=== PATIENT | male | born 2005 | race Two or more races ===

== ENCOUNTER 2024-07-25 22:25 | Emergency (ER) | payer MEDICAID, SELFPAY ==
[2024-07-25 22:27] VITALS: BMI 37.5
--- NOTE | 2024-07-25 22:28 | EKG_ITS ---
[facility] Test Date: 2024-07-25 Pat Name: SHAMAR ROYAL Department: Room: - Gender: Male Pharmacists: : 2005 Requested By: Leno Delaney Order Number: [id number] Reading MD: Leno Delaney Measurements Intervals [place] Rate: 90 P: 20 MN: 136 QRS: -2 QRSD: 110 T: 32 QT: 326 QTc: 400 Interpretive Statements SINUS RHYTHM WITH SINUS ARRHYTHMIA INCOMPLETE RIGHT BUNDLE BRANCH BLOCK [90+ ms QRS DURATION, TERMINAL R IN V1/V2, 40+ ms S IN I/aVL/V4/V5/V6] No previous ECG available for comparison /store/S0/[id number].pdf
[2024-07-25 22:37] VITALS: BP 137/90; PULSE 101; RESP 20; TEMP 36.7; O2SAT 100
--- NOTE | 2024-07-25 22:41 | XR_ITS ---
Examination: PA chest single view Technique: Upright PA chest single view Exam date and time: August 04, 2024 1050 hrs. Indications: Onset chest pain today. Findings: Normal heart size Lungs are clear. The osseous structures are intact Impression: No active disease
--- NOTE | 2024-07-25 22:46 | EDNOTE_ITS ---
ED General RME/HPI General Chief complaint: Chest Pain Stated complaint: CHEST PAIN, DIZZINESS, NAUSEA Time Seen by Provider: 07/25/24 22:37 Arrival date/time: 07/25/24 22:25 RME / HPI RME / HPI narrative: Patient is 18 years old male with past medical history of asthma, depression, self mutilation, suicide attempt presented to the ED complaining of chest pain. He reports pain started approximately 1 week ago and was worsening over the time. He denies any aggravating or elevating factors. He reports pain mostly located over his left chest and left upper quadrant of his abdomen. He has never had this kind of chest pain before. He reports smoking vape, denies smoking tobacco, using illicit drugs or drink alcohol. He denies any fever, chills, shortness of breath. He reports having diarrhea 2 to 3 days ago after he contracted something from his mom who also had diarrhea. Related Data Home Medications ?Medication ?Instructions ?Recorded ?Confirmed fluoxetine 20 mg capsule 20 mg PO QAM 07/16/21 hydroxyzine pamoate 25 mg capsule 50 mg PO HS 07/16/21 08/13/21 quetiapine 100 mg tablet (Seroquel) 150 mg PO HS 08/1308/13/21 Previous Rx's ?Medication ?Instructions ?Recorded ibuprofen 600 mg tablet 600 mg PO TID PRN fever or p ain 08/20/22 #30 tabs albuterol sulfate 90 mcg/actuation 2 inh inhalation QI D PRN shortness 03/19/23 aerosol inhaler (ProAir HFA) of breath or wheezing #8. 5 grams Allergies Allergy/AdvReac Type Severity Reaction Status Date / Time No Known Allergies Allergy Verified 07/25/24 22:26 Review of Systems Review of Systems Systems Reviewed: All systems reviewed, normal except as documented ED Exam Narrative Physical exam: Gen: Well-developed and well-nourished male. HEENT: NCAT, PERRLA, EOMI, MMM, anicteric conjunctivae. CVS: normal S1 and S2. RRR. No M/R/G. Resp: CTA B/L. No rhonchi, rales, crackles or wheezing. Abd: soft, obese, tender in LUQ, non-distended. BS+ in all 4 quadrants. MSK: Good ROM in BUE & BLE. No edema or rash. Neuro: CN II-XII grossly intact. Strength 5/5 in BUE & BLE. Alert and oriented x3. Psych: Appears depressed, does not maintain eye contact. Course Quality Measures none Orders Category Date Time Status EKG (ED ONLY) *Do not use* NOW Care 07/25/24 22:28 Completed CXRP [XR chest 1V portable] Stat Exams 07/25/24 22:41 Completed EKG (ED Only) Stat Exams 07/25/24 22:28 Draft Amylase Stat Lab 07/25/24 23:11 Completed CBC Stat Lab 07/25/24 23:11 Completed CMP [Comprehensive Metabolic Panel] Stat Lab 07/25/24 23:11 Completed Lipase Stat Lab 07/25/24 23:11 Completed Triglycerides Stat Lab 07/25/24 23:11 Completed Troponin I Stat Lab 07/25/24 23:11 Completed Vital Signs Vital signs: Vital Signs Temperature 98.0 F 07/25/24 22:37 Pulse Rate 101 H 07/25/24 22:37 Respiratory Rate 20 07/25/24 22:37 Blood Pressure 137/90 H 07/25/24 22:37 Pulse Oximetry (%) 100 07/25/24 22:37 Oxygen Delivery Method Room Air 07/25/24 22:37 Procedures -ED EKG Interpretation Sinus rhythm: Date of EK07/25/24 Time of EK:44 Rate: 90 Interpretation: Reviewed by me EKG Impression: Normal sinus rhythm [facility] Patient data External records reviewed:: [facility] previous records Clinical information provided by:: patient Social determinants that could affect healthcare access:: none Patient has the following chronic illnesses:: Asthma How is presenting disease/condition affected by chronic disease/condition?: u neffected by Evaluation data The following diagnostics were reviewed and interpreted by me:: lab results, radiology exam(s) and EKG tracing(s) Lab and/or radiology exams considered but not ordered:: CT chest Interpretation Summary: WNL Medications Medications considered but not ordered:: Aspirin, statin Medication administrations:: none Consultations Consultation(s) initiated? (list below): No Diagnosis Differential Diagnosis ED Complaint MDM: ACS, pneumonia, pancreatitis, functional pain Most likely diagnosis given after review of the tests above:: Functional pain Admission Indicated Admission indicated?: not indicated Explain why admission is indicated or not indicated:: Patient has functional pain, work up for pulmonary, cardiac or GI problems were negative. Admission Request Was there a request for admission?: No Disposition Plan Disposition Plan: Discharge Discharge Attestation Discharge Attestation: The patient and all family members were given an opportunity to ask questions and understood the discharge instructions. Discharge instructions specifically effects, indications for sooner follow up or return to the emergency department, and the expected course of current diagnosis. Patient condition: Stable Medical Decision Making Differential Diagnosis Differential Diagnosis: ACS, pneumonia, pancreatitis, functional pain Lab Data 07/25/24 23:11 07/25/24 23:11 Labs: Lab Results 07/25/24 Range/Units 23:11 WBC 10.4 (4.5-11.0) Thou/mm3 RBC 5.29 (4.50-5.90) Miln/mm3 Hgb 15.5 (13.5-16.0) g/dL Hct 45.3 (41.0-53.0) % MCV 86 (80-100) fL MCH 29.3 (25.0-35.0) pg MCHC 34.2 (31.0-37.0) g/dl RDW Std Deviation 38.5 (35.1-43.9) fL Plt Count 269 (140-440) Thou/mm3 Neut % (Auto) 57 (37-80) % Lymph % (Auto) 33 (10-50) % Bibb % (Auto) 6 (0-12) % Eos % (Auto) 3 (0-10) % Baso % (Auto) 1 (0-2.5) % Neut # (Auto) 5.9 (1.8-7.7) Thou/mm3 Lymph # (Auto) 3.4 (1.0-5.0) Thou/mm3 Bibb # (Auto) 0.6 (0.0-0.8) Thou/mm3 Eos # (Auto) 0.4 (0.0-0.5) Thou/mm3 Baso # (Auto) 0.1 (0.0-0.2) Thou/mm3 Immature Gran # (Auto) 0.03 H (0.00-0.00) Thou/mm3 Absolute Nucleated RBC 0.00 (0.00-0.00) Thou/mm3 Immature Gran % 0 (0-0) % Nucleated RBC % 0 (0) /100 WBC Sodium 139 (136-145) mMol/L Potassium 3.8 (3.4-5.1) mMol/L Chloride 104 (98-107) mMol/L Carbon Dioxide 29.9 (20.0-31.0) mMol/L Anion Gap 5 L (7-16) BUN 14 (9-23) mg/dL Creatinine 1.0 (0.6-1.3) mg/dL Estim Creat Clear Calc 139.8 (>60) mL/min eGFR > 60 (60 - ) See Note BUN/Creatinine Ratio 14 (12-20) Ratio Glucose 91 (74-106) mg/dL Calculated Osmolality 278 (275-295) Calcium 9.5 (8.3-10.6) mg/dL Corrected Calcium 9.5 (8.5-10.1) mg/dL Total Bilirubin 0.3 (0.3-1.2) mg/dL AST 30 (0-34) U/L ALT 33 (10-49) U/L Alkaline Phosphatase 98 (46-116) U/L Troponin I < 0.002 (0.0-0.045) ng/mL Total Protein 7.8 (5.7-8.2) gm/dL Albumin 4.8 (3.5-5.0) gm/dL Globulin 3.0 (2.3-3.5) gm/dL Albumin/Globulin Ratio 1.6 (1.2-2.2) Triglycerides 138 (30-150) mg/dL Amylase 45 (30-118) U/L Lipase 34 (12-53) U/L Discharge Plan Plan Patient Disposition: HOME (Self Care) Patient condition on transfer: Stable Prescriptions/Referrals Prescriptions/Med Rec: No Action quetiapine [Seroquel] 100 mg Tablet 150 mg PO HS fluoxetine 20 mg Capsule 20 mg PO QAM hydroxyzine pamoate 25 mg Capsule 50 mg PO HS ibuprofen 600 mg tablet 600 mg PO TID PRN (Reason: fever or pain) Qty: 30 0RF albuterol sulfate [ProAir HFA] 90 mcg/actuation HFA aerosol inhaler 2 inh inhalation QID PRN (Reason: shortness of breath or wheezing) Qty: 8.5 0RF Problem List Clinical Impression: Chest pain of unknown etiology, Abdominal pain of unknown cause Patient/Caregiver Discharge Instructions Additional Instructions: Your ER work up was negative today. Follow up with PCP on 07/28/24 or earlier. Return to the ED if symptoms recur or worsen. Print Language: Mongolian Stand Alone Forms: [employer] Award Info., Patient Portal Info Letter
[2024-07-25 23:33] LABS: Basophils # (Auto) 0.1 Thou/mm3 (0.0-0.2); Basophils % (Auto) 1 % (0-2.5); Eosinophils # (Auto) 0.4 Thou/mm3 (0.0-0.5); Eosinophils % (Auto) 3 % (0-10); Hematocrit 45.3 % (41.0-53.0); Hemoglobin 15.5 g/dL (13.5-16.0); Immature Granulocytes % (Auto) 0 % (0-0); Immature Granulocytes Auto 0.03 Thou/mm3 (0.00-0.00); Lymphocytes # (Auto) 3.4 Thou/mm3 (1.0-5.0); Lymphocytes % (Auto) 33 % (10-50); Mean Corpuscular HGB Conc 34.2 g/dl (31.0-37.0); Mean Corpuscular Hemoglobin 29.3 pg (25.0-35.0); Mean Corpuscular Volume 86 fL (80-100); Monocytes # (Auto) 0.6 Thou/mm3 (0.0-0.8); Monocytes % (Auto) 6 % (0-12); Neutrophils # (Auto) 5.9 Thou/mm3 (1.8-7.7); Neutrophils % (Auto) 57 % (37-80); Nucleated Red Blood Cell % 0 /100 WBC (0); Platelet Count 269 Thou/mm3 (140-440); RDW Standard Deviation 38.5 fL (35.1-43.9); Red Blood Count 5.29 Miln/mm3 (4.50-5.90); White Blood Count 10.4 Thou/mm3 (4.5-11.0)
[2024-07-25 23:53] LABS: Alanine Aminotransferase 33 U/L (10-49); Albumin, Serum 4.8 gm/dL (3.5-5.0); Albumin/Globulin Ratio 1.6 (1.2-2.2); Alkaline Phosphatase 98 U/L (46-116); Amylase 45 U/L (30-118); Anion Gap 5 (7-16); Aspartate Amino Transferase 30 U/L (0-34); BUN/Creatinine Ratio 14 Ratio (12-20); Bilirubin,Total 0.3 mg/dL (0.3-1.2); Blood Urea Nitrogen 14 mg/dL (9-23); Calcium 9.5 mg/dL (8.3-10.6); Calcium (Corrected) 9.5 mg/dL (8.5-10.1); Carbon Dioxide 29.9 mMol/L (20.0-31.0); Chloride 104 mMol/L (98-107); Estimated Creatinine Clearance 139.8 mL/min (>60); Glucose 91 mg/dL (74-106); Lipase 34 U/L (12-53); Osmolality,Calculated 278 (275-295); Potassium 3.8 mMol/L (3.4-5.1); Sodium 139 mMol/L (136-145); Total Protein 7.8 gm/dL (5.7-8.2); Triglycerides 138 mg/dL (30-150); Troponin I < 0.002 ng/mL (0.0-0.045); eGFR > 60 See Note
[2024-07-26 00:37] VITALS: RESP 18
== END 2024-07-26 00:38 | disposition home or self-care (01) ==
LOC: SERX 07-26 00:25
PROVIDERS: Emergency Provider Student in an Organized Health Care Education/Training Program
DX: R07.9 Chest pain, unspecified (principal); R10.9 Unspecified abdominal pain; I49.8 Other specified cardiac arrhythmias; I45.10 Unspecified right bundle-branch block
CPT/HCPCS: 36415; 71045; 80053; 82150; 83690; 84478; 84484; 85025; 93005; 99283

== ENCOUNTER 2025-04-05 12:57 | Emergency (ER) | payer MEDICAID, SELFPAY ==
[2025-04-05 12:59] VITALS: BMI 36.0
[2025-04-05 13:36] VITALS: BP 124/86; PULSE 89; RESP 20; TEMP 36.8; O2SAT 95
--- NOTE | 2025-04-05 13:54 | EDNOTE_ITS ---
ED General RME/HPI General Chief complaint: Flu Like Symptoms Stated complaint: COUGH, SORE THROAT, VOMITING, CHEST PAIN x 3 DAYS Time Seen by Provider: 04/05/25 13:54 Arrival date/time: 04/05/25 12:57 RME / HPI RME / HPI narrative: 19-year-old male with past medical history of asthma who has been admitted as a child over 10 years ago, never intubated, presents to the ER complaining of cough congestion sore throat, feeling unwell for the past 2 days. Denies any vomiting, dysphagia, fever. Related Data Home Medications ?Medication ?Instructions ?Recorded ?Confirmed fluoxetine 20 mg capsule 20 mg PO QAM 07/16/21 hydroxyzine pamoate 25 mg capsule 50 mg PO HS 07/16/21 08/13/21 quetiapine 100 mg tablet (Seroquel) 150 mg PO HS 08/1308/13/21 Previous Rx's ?Medication ?Instructions ?Recorded ibuprofen 600 mg tablet 600 mg PO TID PRN fever or p ain 08/20/22 #30 tabs albuterol sulfate 90 mcg/actuation 2 inh inhalation QI D PRN shortness 03/19/23 aerosol inhaler (ProAir HFA) of breath or wheezing #8. 5 grams albuterol sulfate 90 mcg/actuation 2 inh inhalation Q6 H PRN shortness 04/05/25 breath activated powder inhaler of breath or wheezing #1 ea prednisone 20 mg tablet 40 mg (2 x 20 mg) PO QDAY #1 0 tabs 04/05/25 Allergies Allergy/AdvReac Type Severity Reaction Status Date / Time No Known Allergies Allergy Verified 04/05/25 13:01 ED Exam Narrative Physical exam: Constitutional: Patient alert and oriented. Well appearing. No acute distress. Not toxic appearing. Head: Normocephalic, atraumatic. Eyes: Periorbital regions bilaterally normal to inspection. Conjunctiva clear bilaterally. Sclera anicteric bilaterally. Pupils equal, round, reactive to light bilaterally. Extraocular movements intact bilaterally. Ears: External ears normal to inspection bilaterally. No mastoid tenderness bilaterally. EAC without edema or exudate bilaterally. TMs without erythema or bulging. Mouth/Throat: Mucous membranes moist. No stridor or muffled voice. Uvula mi dline. Rise and fall of soft palate normal. Positive erythema of oropharynx. No tonsillar edema or exudate. No peritonsillar fullness. No trismus. Handling secretions without difficulty. Airway widely patent. Neck: Supple. Trachea midline. No JVD. No nuchal rigidity. No midline tenderness or step-offs. Normal range of motion. Respiratory: Normal effort. No accessory muscle use or respiratory distress. Lungs bilaterally with rhonchi, wheezes inspiratory and expiratory. Cardiovascular: RRR. Normal S1/S2. No murmurs or rubs. Radial pulses intact bilaterally. Abdomen: Soft. Non-distended. Non-tender throughout. No pulsatile mass. No guarding or rebound. Negative Michel?s sign. Negative McBurney?s point tenderness. Negative Rovsing?s. Back: No midline tenderness or step-offs. No CVA tenderness to palpation bilaterally. Upper Extremities: No gross deformities. Lower Extremities: No gross deformities. No edema or calf tenderness. Neuro: Speech normal. No gross motor or sensory deficits to upper or lower extremities bilaterally. GCS 15. CN II?XII grossly intact. Skin: Warm, dry, normal color. Psych: Normal affect. Cooperative. Normal insight. Course Quality Measures none Orders Category Date Time Status Bedside COVID-19 Antigen Test NOW Care 04/05/25 13:56 Active Bedside Influenza A&B Antigen Test NOW Care 04/05/25 13:56 Completed XR chest 1V Stat Exams 04/05/25 13:56 Completed Strep A Rapid Stat Lab 04/05/25 14:11 Completed ALBUTEROL RT 0.5ml [Proventil Rt 0.5ml] Med 04/05/25 13:56 Discontinued 5 mg INH X1 ONE Ipratropium [place] Rt Kirsten [Atrovent Rt Kirsten] Med 04/05/25 13:56 Discontinued 0.5 mg INH X1 ONE Sodium Chloride Rt Kirsten 0.9% [NS Rt Kirsten 0.9%] Med 04/05/25 13:56 Active 3 ml INH PRN PRN Sodium Chloride Rt Kirsten 0.9% [NS Rt Kirsten 0.9%] Med 04/05/25 13:56 Active 3 ml INH PRN PRN predniSONE Med 04/05/25 13:56 Discontinued 60 mg PO X1 ONE Reevaluation(s) Reevaluation #1: At the time of reassessment, the patient remains alert and oriented ?3 with GCS 15. Vitals are normal, pain is controlled, and the patient is tolerating oral intake without nausea or vomiting. The patient is agreeable to discharge and rupert balizes understanding of the diagnosis, studies, treatment plan, medications (including side effects/precautions), and strict ER return precautions as discussed in the ED. All concerns were addressed, and the patient is comfortable with the plan. Time: 16:53 Vital Signs Vital signs: Vital Signs Temperature 98.3 F 04/05/25 13:36 Pulse Rate 89 04/05/25 13:36 Respiratory Rate 20 04/05/25 13:36 Blood Pressure 124/86 H 04/05/25 13:36 Pulse Oximetry (%) 95 04/05/25 13:36 Oxygen Delivery Method Room Air 04/05/25 13:36 Discharge Plan Plan Patient Disposition: HOME (Self Care) Patient condition on transfer: Stable Prescriptions/Referrals Prescriptions/Med Rec: New prednisone 20 mg tablet 40 mg PO QDAY Qty: 10 0RF albuterol sulfate 90 mcg/actuation aerosol powdr breath activated 2 inh inhalation Q6H PRN (Reason: shortness of breath or wheezing) Qty: 1 0RF No Action quetiapine [Seroquel] 100 mg Tablet 150 mg PO HS fluoxetine 20 mg Capsule 20 mg PO QAM hydroxyzine pamoate 25 mg Capsule 50 mg PO HS ibuprofen 600 mg tablet 600 mg PO TID PRN (Reason: fever or pain) Qty: 30 0RF albuterol sulfate [ProAir HFA] 90 mcg/actuation HFA aerosol inhaler 2 inh inhalation QID PRN (Reason: shortness of breath or wheezing) Qty: 8.5 0RF Referrals: No Primary/Family,Physician [Primary Care Provider] - In 1 week Problem List Clinical Impression: Bronchitis Patient/Caregiver Discharge Instructions Education Materials: ED Bronchitis with Wheezing (Adult) Additional Instructions: Follow up with your primary medical doctor within 24 hours. Return to the Emergency Room immediately for any new, worsening, continuing symptoms or any concerns at all. Return to the Emergency Room within 24 hours if you are unable to follow up with your primary medical doctor within 24 hours. Print Language: Danish Stand Alone Forms: [employer]ira Award Info., Work/School Release, Patient Portal Info Letter PA/[employer]IED NETWORK ASSOCIATE Supervising Physician PA/[employer]IED NETWORK [employer]IATE Supervising Physician: Dr. Blount MDM Narrative MDM hospital course (for use when minimal MDM required): This patient has been diagnosed with a viral illness complicated by his asthma. Chest x-ray negative for acute cardiopulmonary abnormality. A careful history and physical exam, and laboratory testing as appropriate, show no signs of meningitis, pneumonia, or other serious viral or bacterial infection. I considered antibiotics; however, given viral etiology, it is not indicated. The patient is told that viral illness is a presumptive diagnosis and if improvement is not occurring within several days or if symptoms change or worsen , a re-evaluation needs to be done with the PMD or in the ED to make sure a more serious, as yet undiagnosable, problem is not occurring. This patient has evidence of an acute exacerbation of chronic bronchospastic disease. The patient has received bronchodilator treatment and has been reassessed with objective improvement noted on exam. The patient has access to further bronchodilator treatment after discharge and has received additional appropriate care. The patient understands that if the symptoms do not improve within the next 8-12 hours or there is any deterioration, to return immediately for reassessment Medication Administration(s) Medication Administration History Sodium Chloride (Sodium Chloride Rt Kirsten 0.9% 3 Ml Nebu) 3 ml INH PRN PRN PRN Reason: SOLN Stop: 05/05/25 13:55 Sodium Chloride (Sodium Chloride Rt Kirsten 0.9% 3 Ml Nebu) 3 ml INH PRN PRN PRN Reason: SOLN Stop: 05/05/25 13:55 Discontinued Medications Albuterol (Albuterol Rt 2.5 Mg/0.5 Ml Nebu) 5 mg INH X1 ONE Stop: 04/05/25 13:57 Last Admin: 04/05/25 14:18 Dose: 5 mg Documented By: JAZMYN Ipratropium [place] (Ipratropium Rt 0.5 Mg/ 2.5 Ml Nebu) 0.5 mg INH X1 ONE Stop: 04/05/25 13:57 Last Admin: 04/05/25 14:18 Dose: 0.5 mg Documented By: JAZMYN Prednisone (Prednisone 20 Mg Tablet) 60 mg PO X1 ONE Stop: 04/05/25 13:57 Last Admin: 04/05/25 14:15 Dose: 60 mg Documented By: CARLOTA
--- NOTE | 2025-04-05 13:56 | XR_ITS ---
EXAMINATION: PA chest single view TECHNIQUE: Upright PA chest single view Date and time: April 05, 2025, 1408 hours, comparison July 25, 2024 INDICATIONS: Shortness of breath coughing beginning 3 days ago FINDINGS: Normal heart size Lungs are clear. Osseous structures are intact IMPRESSION: No active disease
[2025-04-05 14:18] VITALS: PULSE 90
[2025-04-05] MEDS: ALBUTEROL RT 2.5 MG/0.5 ML NEBU 5 MG INH (14:18)
[2025-04-05] MEDS: IPRATROPIUM RT 0.5 MG/ 2.5 ML NEBU INH (14:18)
[2025-04-05 14:19] VITALS: PULSE 95; RESP 18; O2SAT 97
[2025-04-05 14:28] LABS: Strep A Rapid Negative (Negative)
== END 2025-04-05 16:56 | disposition home or self-care (01) ==
PROVIDERS: Physician Assistant; Emergency Provider Emergency Medicine
DX: J40 Bronchitis, not specified as acute or chronic (principal)
CPT/HCPCS: 71045; 87502; 87635; 87651; 94640; 99283; J7512; J7644; J7611